=== PATIENT | male | born 1975 | race African-American/Black ===

== ENCOUNTER 2018-01-21 16:19 | Emergency (ER) | payer SELFPAY ==
[~2018-01-21] VITALS: Ht 162.6 cm; Wt 75.5 kg
[~2018-01-21 16:19] MED LIST: AUGM875T PO; HYDR-3533 PO
[2018-01-21 16:20] VITALS: BP 132/60; PULSE 105; RESP 18; TEMP 98.7; O2SAT 96
[2018-01-21 18:35] VITALS: BP 102/57; PULSE 81; RESP 16; TEMP 98; O2SAT 97
--- NOTE | 2018-01-21 20:02 | PD ---
HPI Chief Complaint: Skin Problem Time Seen by Provider: 19:55 Travel History International Travel<30 days: No Contact w/Intl Traveler<30days: No Traveled to known affect area: No History of Present Illness HPI 42-year-old black male presents emergency department complaints of a painful tender swollen area to his right forearm over the past week. He states that the pain is more severe now. He denies any IV drug abuse. He denies any direct trauma. No prior history of skin infections. Exacerbated by palpation or movement. No alleviating factors. PFSH Past Medical History Medical History: Denies Significant Hx Diminished Hearing: No Tetanus Vaccination: Unknown ?: Not Past Surgical History Surgical History: No Previous Surgery Social History Alcohol Use: No Tobacco Use: Yes (1 ppd) Substance Use: No Allergies-Medications (Allergen,Severity, Reaction): Coded Allergies: No Known Allergies (Unverified Allergy, Unknown, 01/21/18) Reported Meds & Prescriptions Reported Meds & Active Scripts Active [place] (Hydrocodone-Acetaminophen) 5 Mg-325 Mg Tab 1 Tab PO Q6H PRN Cleocin (Clindamycin HCl) 300 Mg Cap 300 Mg PO Q6H 10 Days Bactrim DS (Sulfamethoxazole-Trimethoprim) 800-160 Mg Tab 1 Tab PO BID Review of Systems Except as stated in HPI: all other systems reviewed are Neg Physical Exam Narrative GENERAL: This is a well-nourished, well-developed patient, in no apparent distress. SKIN: Patient has a large abscess to the right volar forearm. This measures approximately 5 x 5 cm. There is a surrounding area of erythema, warmth and induration. Positive fluctuance but no pointing. HEAD: Atraumatic. Normocephalic. EYES: PERRL, EOMI, no discharge or injection. No scleral icterus. EARS: Clear NOSE: Nasal turbinates appear normal. THROAT: Mucosa pink and moist. Airway patent. NECK: Trachea midline. supple, moves head freely. LUNGS: Clear to auscultation. CV: Regular in rhythm. ABDOMEN: Soft nontender. EXT: No clubbing cyanosis or edema. Data Data Last Documented VS Vital Signs Date Time Temp Pulse Resp B/P (MAP) Pulse Ox O2 Delivery O2 Flow Rate FiO2 01/21/18 18:35 98.0 81 16 102/57 (72) 97 Room Air Orders Orders Clindamycin 900 Mg/Ns Premix (Cleocin 90 (01/21/18 20:15) Sulfamet-Trimeth Ds 800-160 Mg (Bactrim (01/21/18 20:15) Lidocai-Epi 2%-1:100,000 Inj (Xylocaine- (01/21/18 20:15) Ed Discharge Order (01/21/18 20:26) MDM Medical Decision Making Medical Screen Exam Complete: Yes Emergency Medical Condition: Yes Medical Record Reviewed: Yes Differential Diagnosis MDM: High Differential diagnoses: Abscess, folliculitis, cellulitis, lymphangitis, abrasion, contact dermatitis Narrative Course An incision and drainage has been performed. Patient is given clindamycin 900 mg IV. Bactrim DS p.o. Procedures Procedure Narrative I&D abscess: After the risks and benefits were discussed the following procedure was performed. The skin is prepped and draped in the usual sterile fashion using Betadine. The abscess is anesthetized with 2% lidocaine with epinephrine. After adequate anesthesia, an 11 blade scalpel is used to make a 3 centimeter central incision. Perulant material is expressed . The patient has refused further wound care. Patient has refused packing.. A clean dressing is applied. The patient tolerated the procedure well. There was no complications. Follow-up instructions were given to the patient. Diagnosis Primary Impression: Right forearm abscess Patient Instructions: General Instructions Additional Instructions: Rest. Elevation. keep clean and dry. remove the packing in two days. Daily wound care with soap, water and Neosporin. Three Advil every 6 hours. Clindamycin, Septra DS, and Lortab. Follow-up with a primary care doctor in 2-3 days. Return to the ER for any problems. Med/Other Pt SpecificInfo: Prescription(s) given Scripts Hydrocodone-Acetaminophen ([place]) 5 Mg-325 Mg Tab 1 TAB PO Q6H Y for PAIN, #10 TAB 0 Refills Prov: Royce Chavarria MD 01/21/18 Clindamycin (Cleocin) 300 Mg Cap 300 MG PO Q6H for Infection for 10 Days, #40 CAP 0 Refills Prov: Royce Chavarria MD 01/21/18 Sulfamethoxazole-Trimethoprim (Bactrim DS) 800-160 Mg Tab 1 TAB PO BID for Infection, #20 TAB 0 Refills Prov: Royce Chavarria MD 01/21/18 Disposition: 01 DISCHARGE HOME Condition: Stable Jamil Nelson Jan 21, 2018 20:02
[2018-01-21] MEDS ORDERED: CLEO300C2 PO (20:04)
[2018-01-21] MEDS ORDERED: BACT800T5 PO (20:04)
[2018-01-21] MEDS ORDERED: NORC5TAB PO (20:04)
[2018-01-21] MEDS ORDERED: LIDOCAINE 2%/EPINEPHrine 1:100,000 20ML MDV INFIL ONE (20:15)
[2018-01-21] MEDS ORDERED: LIDOCAINE 2%/EPINEPHrine 1:100,000 30ML MDV INFIL ONE (20:15)
[2018-01-21] MEDS ORDERED: SULFAMETHOXAZOLE-TRIMETHOPRIM DS 800-160 MG TAB PO ONE (20:15)
[2018-01-21] MEDS ORDERED: CLINDAMYCIN 900 MG/NS PREMIX 50 ML IV ONE (20:15)
== END 2018-01-21 21:14 | disposition home or self-care (01) ==
LOC: NEPD 16:19
DX: L02.413 Cutaneous abscess of right upper limb (principal); F17.200 Nicotine dependence, unspecified, uncomplicated
CPT/HCPCS: 10060; 96365